=== PATIENT | female | born 1965 | race Caucasian/White ===

== ENCOUNTER 2024-10-22 07:48 | Day surgery (SDC) | payer OTHER, SELFPAY ==
[2024-10-08 10:47] VITALS: BMI 23.5
[2024-10-08 11:16] LABS: Hematocrit 41.7 % (37.0-47.0); Hemoglobin 14.4 g/dL (12.0-16.0); Mean Corp Hgb Conc. 34.5 g/dL (33.0-37.0); Mean Corpuscular Volume 89.7 fL (81.0-99.0); Nucleated Red Blood Cells % 0 %; Platelet Count 369 10^3/uL (130-400); Red Cell Dist. Width 11.5 % (11.5-14.5)
[2024-10-08 11:22] LABS: ALT (SGPT) 29 U/L (0-35); AST (SGOT) 26 U/L (14-36); Albumin 5.1 g/dl (3.5-5.0); Alkaline Phosphatase 55 U/L (38-126); Blood Urea Nitrogen 10 mg/dl (7-17); Calcium 10.6 mg/dl (8.4-10.2); Carbon Dioxide 29 mmol/L (22-30); Chloride 100 mmol/L (98-107); Estimated Creatinine Clearance 54 ml/min; Glucose 111 mg/dl (70-99); Magnesium 2.3 mg/dl (1.6-2.3); Potassium 4.4 mmol/L (3.5-5.1); Sodium 136 mmol/L (135-145); Total Protein 7.5 g/dl (6.3-8.2); eGFR > 60.00
[2024-10-22] VITALS (10 sets, daily range): BP systolic 126–167; BP diastolic 82–112
[2024-10-22] MEDS: TYLENOL 650 MG PO ×2 (11:49→15:59)
--- NOTE | 2024-10-22 12:16 | ITS.CL.ABL ---
[facility] Executive Director - Ablation
Ablation
Procedure Report:
ELECTROPHYSIOLOGY STUDY REPORT
Date of Procedure: October 22, 2024
Referring: Dr. Christiane Montalvo
INDICATION: Symptomatic atrial bigeminy and periods of 'heart racing'
HISTORY: As above. Refractory to propranolol and diltiazem therapy.
PROCEDURE:
Baseline intracardiac measurements were obtained in sinus rhythm.��HRA, HIS, RVA and CS catheters were placed. 3D mapping with the [employer] mapping system was utilized. Grid catheter was utilized for right atrial mapping.
Atrial decremental extrastimuli were delivered from the HRA and the CS.��Single and double extrastimuli as well as burst pacing were performed from both sites in both the baseline state and with isoproterenol infusion.��Maximum tolerated dose of
isoproterenol was 2 mics. Intolerable due to hypotension and ST segment changes. Atrial and AVN antegrade ERP�s were determined.��Antegrade as well as retrograde AVN [place] CL�s were determined. Intracardiac ultrasound was utilized for pre
and post procedure imaging and to guide potential ablation stability if sustained tachycardia was inducible. Patient had hyperdynamic LV ejection fraction with underfilled right and left ventricles at baseline with no pericardial effusion pre or
post ablation. Right femoral left femoral venous access was performed under direct ultrasound guidance.
MEASUREMENTS:
BASELINE
A-A:�800 ms
P-P:�800 ms
A-H:�86 ms
H-V����58 ms
P-R:���144 ms
QRS:�80 ms
QT:����Less than 400 ms
SNRT: Normal at 600 ms
AVN [place]kebach: Less than 300 ms with pacing at 300 ms the patient went into 2 to 3 seconds of atrial fibrillation which self terminated
AVN Fast Pathway ERP: 600�350 ms
AVN Slow Pathway ERP: 600�350 ms there is no evidence for dual eldon physiology during atrial extrastimuli
HIS-Purkinje System: Normal; no distal block
Retrograde Conduction Decremental, Retrograde Block for 10 ms
RVA ERP: 310 ms/600ms�conduction was midline and decremental
The patient was noninducible for supraventricular tachycardia during ventricular burst and extrastimuli pacing. The patient was also noninducible from pacing from both right and left atrial positions in the coronary sinus as well as from the right
atrium proper. Burst pacing, atrial extrastimuli, and pacing at the Wenke block tachycardia cycle length did not demonstrate any sustained tachycardia. On isoproterenol the patient had rare PACs which were mapped with the multipolar catheter but
given their rarity these were not targeted for ablation.
COMPLICATIONS: None
SUMMARY: Placed on lower dose diltiazem plus propranolol. Interestingly the patient noted heart racing when she presented after recent drug washout for procedure with a sinus rate in the high 90s and low 100s which she describes as 'heart racing
'and on lower dose diltiazem plus propranolol was getting rare PAC symptoms.
RECOMMENDATIONS:
1. Diltiazem 120 mg CD plus propranolol
2. Outpatient follow-up with Dr. Montalvo as outpatient
[2024-10-22] MEDS: INDERAL 80 MG PO (13:28)
[2024-10-22] MEDS: CARDIZEM CD 120 MG PO (13:29)
[2024-10-22] MEDS: TORADOL 15 MG IV (14:51)
== END 2024-10-22 16:22 | disposition home or self-care (01) ==
LOC: CATH 07:48
PROVIDERS: ATTENDING PHYSICIAN Internal Medicine Cardiovascular Disease; FAMILY PHYSICIAN Family Medicine; OTHER PHYSICIAN Internal Medicine Interventional Cardiology
DX: I47.19 Other supraventricular tachycardia (principal); I49.5 Sick sinus syndrome; I12.9 Hypertensive chronic kidney disease with stage 1 through stage 4 chronic kidney disease, or unspecified chronic kidney disease; G47.33 Obstructive sleep apnea (adult) (pediatric); Z87.19 Personal history of other diseases of the digestive system; K22.2 Esophageal obstruction; K21.9 Gastro-esophageal reflux disease without esophagitis; M41.9 Scoliosis, unspecified; M51.369 Other intervertebral disc degeneration, lumbar region without mention of lumbar back pain or lower extremity pain; M19.90 Unspecified osteoarthritis, unspecified site; F41.9 Anxiety disorder, unspecified; F32.A Depression, unspecified; D72.829 Elevated white blood cell count, unspecified; E83.52 Hypercalcemia; Z88.8 Allergy status to other drugs, medicaments and biological substances; Z79.899 Other long term (current) drug therapy; N18.30 Chronic kidney disease, stage 3 unspecified; K44.9 Diaphragmatic hernia without obstruction or gangrene; G44.209 Tension-type headache, unspecified, not intractable
CPT/HCPCS: 93620; C1769; C1894; C1732; C1730; C1892; C1759; 36415; 80053; 83735; 85025; 86850; 86900; 86901; 93005; 93613; 93621